=== PATIENT | female | born 2000 | race African-American/Black ===

== ENCOUNTER 2023-05-17 03:59 | Emergency (ER) | payer MEDICAID ==
[~2023-05-17] VITALS: Ht 167.6 cm; Wt 67.0 kg
[2023-05-17 04:16] VITALS: BP 124/89; O2SAT 100
[2023-05-17 04:38] LABS: CLARITY URINE TURBID (CLEAR); COLOR URINE YELLOW (YELLOW); KETONES URINE NEGATIVE (NEGATIVE); LEUKOCYTE ESTERASE URINE 3+ (NEGATIVE); NITRITE URINE NEGATIVE (NEGATIVE); OCCULT BLOOD URINE NEGATIVE (NEGATIVE); PROTEIN URINE NEGATIVE (NEGATIVE); SPECIFIC GRAVITY URINE 1.016 (1.005-1.030)
[2023-05-17] MEDS ORDERED: CEPH500C2 MT (05:35)
[2023-05-17] MEDS ORDERED: METR45CR TP (05:35)
[2023-05-17 06:05] VITALS: PULSE 95; RESP 18; TEMP 98.6
[2023-05-17] MEDS ORDERED: MICO45CR46 VG (06:17)
== END 2023-05-17 08:05 | disposition home or self-care (01) ==
LOC: EDBD 03:59 → ER 07:15
DX: N39.0 Urinary tract infection, site not specified (principal)
CPT/HCPCS: 81003; 81025; 86592; 87491; 87591; 99283